=== PATIENT | male | born 1955 | race Caucasian/White ===

== ENCOUNTER 2020-04-30 07:03 | Day surgery (SDC) | payer OTHER ==
[~2020-04-30 07:03] MED LIST: Lactated Ringers 1,000 ML IV SCH; Sodium Chloride 0.9% 10 ML Syringe FLUSH PRN
[2020-04-30] MEDS ORDERED: Propofol 200 MG/20 ML SDV IV ONE (07:04)
--- NOTE | 2020-04-30 08:26 | PCM.OPNOTE ---
- General Post-Op/Procedure Note Date of Surgery/Procedure: 04/30/20 Operative Procedure(s): c scope with bx Findings: hyperplastic appearing rectal polyps x4 Pre Op Diagnosis: personal hx of colon polyps Post-Op Diagnosis: rectal polyps x4 Anesthesia Technique: JOYCE Primary Surgeon: Walter Riley Anesthesia Provider: Dandre Carrillo Pathology: rectal polyps Complications: None Condition: Good Free Text/Narrative:: see dictation [id number]
--- NOTE | 2020-04-30 09:16 | OR ---
DATE OF OPERATION: 04/30/2020 SURGEON: Walter Riley MD PROCEDURE PERFORMED: Colonoscopy with cold forceps biopsy. PREOPERATIVE DIAGNOSIS: Personal history of colon polyps. POSTOPERATIVE DIAGNOSIS: Hyperplastic-appearing polyps of the rectum x4. INDICATIONS FOR PROCEDURE: This is a 64-year-old white male who 6 years ago underwent a screening colonoscopy and had 3 polyps removed. He presents now for followup colonoscopy. DESCRIPTION OF OPERATION: After an excellent IV sedation was administered, digital rectal exam was performed. No marked abnormality was noted. Flexible colonoscope was inserted and advanced without difficulty to the patient's cecum. The prep was excellent. The following findings were noted. Ascending colon unremarkable. Transverse colon unremarkable. Descending colon unremarkable. Sigmoid unremarkable. Rectum, he appears to have 4 hyperplastic-appearing lesions. These were all 2 to 3 mm in size. These were all biopsied with cold biopsy forceps and submitted in 1 container. The patient tolerated the procedure well. Results will be sent via letter. /[id number] /SARAH
[2020-04-30 10:27] VITALS: BP 137/70; PULSE 57
== END 2020-04-30 09:07 | disposition home or self-care (01) ==
LOC: FB.SDS 07:03
PROVIDERS: ATTEND Surgery
DX: Z12.11 Encounter for screening for malignant neoplasm of colon (principal); D12.8 Benign neoplasm of rectum; I10 Essential (primary) hypertension; G47.33 Obstructive sleep apnea (adult) (pediatric); F17.210 Nicotine dependence, cigarettes, uncomplicated; K21.9 Gastro-esophageal reflux disease without esophagitis; Z79.899 Other long term (current) drug therapy; Z98.890 Other specified postprocedural states
CPT/HCPCS: 00812; 45380; J2704; J7120

== ENCOUNTER 2022-09-10 20:17 | Emergency (ER) | payer MEDICARE, BC ==
[2022-09-10] MEDS ORDERED: traMADol 50 MG Tab PO ONE (20:18)
[2022-09-10 23:11] VITALS: BP 167/87; PULSE 87
== END 2022-09-10 21:03 | disposition home or self-care (01) ==
LOC: FB.ED 20:17
DX: S93.601A Unspecified sprain of right foot, initial encounter (principal); Z88.8 Allergy status to other drugs, medicaments and biological substances; X50.1XXA Overexertion from prolonged static or awkward postures, initial encounter
CPT/HCPCS: 73630-RT; 99283; A9270-GY

== ENCOUNTER 2025-03-20 07:55 | Day surgery (SDC) | payer BC, MEDICARE ==
[2025-03-20] MEDS ORDERED: Glycopyrrolate 0.2 MG/ML 5 ML MDV IV ONE (07:56)
[2025-03-20] MEDS ORDERED: Propofol 200 MG/20 ML SDV IV ONE (07:56)
[2025-03-20] MEDS ORDERED: Midazolam 1 MG/ML 2 ML SDV IV ONE (07:56)
[2025-03-20] MEDS ORDERED: Sodium Chloride 0.9% 10 ML Syringe FLUSH PRN (08:00)
[2025-03-20 08:32] VITALS: BP 146/76; PULSE 73
[2025-03-20] MEDS: Lactated Ringers 1,000 ML IV SCH (09:20)
[2025-03-22 20:28] LABS: LACTOFERRIN,FECAL BY ELISA Positive (Negative)
[2025-03-23 02:50] LABS: ADENOVIRUS 40/41 PCR Not Detected; ASTROVIRUS PCR Not Detected; CRYPTOSPORIDIUM PCR Not Detected; CYCLOSPORA CAYETANENSIS PCR Not Detected; ENTAMOEBA HISTOLYTICA PCR Not Detected; ENTEROAGGREGATIVE E. COLI PCR Not Detected; ENTEROPATHOGENIC E. COLI PCR Not Detected; ENTEROTOXIGENIC E. COLI PCR Not Detected; GIARDIA LAMBLIA PCR Not Detected; NOROVIRUS GI/GII PCR Not Detected; PLESIOMONAS SHIGELLOIDES PCR Not Detected; ROTAVIRUS A PCR Not Detected; SALMONELLA PCR Not Detected; SAPOVIRUS PCR Not Detected; SHIG/ENTEROINVASIVE E COLI PCR Not Detected; SHIGA TOXIN-PRODUC E. COLI PCR Not Detected; VIBRIO CHOLERAE PCR Not Detected; VIBRIO PCR Not Detected; YERSINIA ENTEROCOLITICA PCR Not Detected
== END 2025-03-20 12:34 | disposition home or self-care (01) ==
LOC: FB.SDS 07:55
PROVIDERS: ATTEND Surgery
DX: Z12.11 Encounter for screening for malignant neoplasm of colon (principal); D12.6 Benign neoplasm of colon, unspecified; I10 Essential (primary) hypertension; F17.210 Nicotine dependence, cigarettes, uncomplicated; Z88.5 Allergy status to narcotic agent; Z88.8 Allergy status to other drugs, medicaments and biological substances; Z80.0 Family history of malignant neoplasm of digestive organs; Z86.0101 Personal history of adenomatous and serrated colon polyps; Z79.899 Other long term (current) drug therapy
CPT/HCPCS: 00811; 83630; 87507; 88305; A9270-GY; J1596; J2250; J2704; J7120